=== PATIENT | male | born 1995 | race Caucasian/White ===

== ENCOUNTER 2018-06-21 08:34 | Emergency (ER) | payer OTHER ==
[~2018-06-21] VITALS: Ht 180.3 cm; Wt 70.3 kg
[2018-06-21] MEDS ORDERED: KETO10 PO (09:15)
[2018-06-21] MEDS ORDERED: Cyclobenzaprine5 MG PO (09:15)
== END 2018-06-21 09:40 | disposition home or self-care (01) ==
LOC: ER 08:34
DX: S39.012A Strain of muscle, fascia and tendon of lower back, initial encounter (principal); X50.0XXA Overexertion from strenuous movement or load, initial encounter
CPT/HCPCS: 99283